=== PATIENT | male | born 1985 | race Two or more races ===

== ENCOUNTER 2024-01-11 08:55 | Emergency (ER) | payer OTHER ==
[~2024-01-11] VITALS: Ht 170.2 cm; Wt 80.8 kg
[2024-01-11 09:28] VITALS: BP 116/71; PULSE 66; RESP 16; TEMP 98.4; O2SAT 98
[2024-01-11] MEDS: LIDOCAINE 1% HCL (LOCAL ANESTH.) INJ 20ML MDV IJ ONE (09:32)
[2024-01-11] MEDS ORDERED: CEPH500C PO (09:45)
== END 2024-01-11 09:49 | disposition home or self-care (01) ==
LOC: ER 09:00
DX: S61.411A Laceration without foreign body of right hand, initial encounter (principal); Z79.899 Other long term (current) drug therapy; W45.8XXA Other foreign body or object entering through skin, initial encounter; Y93.89 Activity, other specified; Y92.89 Other specified places as the place of occurrence of the external cause; Y99.8 Other external cause status
CPT/HCPCS: 12002; J2001